=== PATIENT | male | born 1975 | race Caucasian/White ===

== ENCOUNTER 2021-11-23 13:23 | Emergency (ER) | payer BC ==
[~2021-11-23] VITALS: Ht 157.5 cm; Wt 75.0 kg
[~2021-11-23 13:23] MED LIST: ACIDOPHILU4 OR; AMOXICILLIN/CL875 MG PO; AMOXICILLIN875 MG OR; BENZONATATE200 MG PO; CIPRO500 MG OR; CIPROFLOXACN500 MG PO; CLONIDINE0.1 MG PO; CLONIDINE0.2 MG OR; COLCHICINE0.6 MG PO; COLCRYS0.6 MG; COLCRYS0.6 MG OR; FISH OIL1000 M1 OR; FLAGYL500 MG OR; HYDROCHLOROT25 MG; HYDROCHLOROT25 MG OR; INDOMETHACIN25 MG PO; KLOR-CON 1010 ME1 OR; LISINOP/HCTZ1 TA1 OR; LISINOP/HCTZ1 TA2 PO; LISINOPRIL10 MG PO; LOPID600 MG PO; LOVASTATIN10 MG PO; MEDDOSEPAK PO; METO50TA52 OR; METOPROL TAR100 MG PO; METOPROL TAR50 MG OR; METOPROLOL50 M1 OR; MILK OF MAG2 OR; NAPROXEN500 MG PO; NORVASC10 M1 OR; OMEPRAZOLE20 MG; PRILOSEC20 MG OR; SIMVASTATIN TAB 20M; TOPROL XL100 MG PO; ZITHROMAX500 MG OR; ZOCOR20 MG OR; ZOCOR20 MG PO; ZYLOPRIM300 MG PO
[2021-11-23 13:27] VITALS: BP 171/121
[2021-11-23 13:45] VITALS: BP 188/109
[2021-11-23] MEDS ORDERED: OMNI-PAC300 MG PO (14:09)
[2021-11-23] MEDS ORDERED: BACTRIM DS1 TAB PO (14:09)
[2021-11-23 14:24] VITALS: BP 188/109
== END 2021-11-23 14:37 | disposition home or self-care (01) | DRG 603 ==
LOC: ED 13:23
PROC: 0H9GXZZ Drainage of Left Hand Skin, External Approach (ICD-10-PCS; principal; 2021-11-23)
DX: L02.512 Cutaneous abscess of left hand (principal); I10 Essential (primary) hypertension; E11.9 Type 2 diabetes mellitus without complications; E78.00 Pure hypercholesterolemia, unspecified